=== PATIENT | male | born 1960 | race African-American/Black ===

== ENCOUNTER 2017-04-20 17:00 | Outpatient (CLI) | payer BC, OTHER ==
--- NOTE | 2017-04-21 09:33 | Ultrasound Report ---
SCROTAL DOPPLER: 04/20/2017 CLINICAL INDICATION: Trauma, pain, right-sided swelling. TECHNIQUE: Real-time sonographic vascular imaging was performed by the tax assistant through the scrot um utilizing both color-flow and Doppler spectral analysis. Multiple patient account representative static images we re saved for review. FINDINGS: The right testicle measures 4.9 x 3.5 x 2.2 cm, and the left testicle measures 4.7 x 3.5 x 2.0 cm. Both testicles demonstrate normal flow and echotexture. The epididymides are unremarkable. Trace bilateral hydroceles are present. No varicocele or hernia is present. Incidental note is ma de of a 3-mm right scrotal yang. IMPRESSION: NORMAL TESTICLES. NO EVIDENCE OF MASS. JOB #: [id number] EXT JOB #:[id number]
== END 2017-04-20 17:01 | disposition home or self-care (01) ==
LOC: DI 17:00
PROVIDERS: ATTEND Family Medicine
DX: R19.09 Other intra-abdominal and pelvic swelling, mass and lump (principal)
CPT/HCPCS: 76870; 93975